=== PATIENT | male | born 1970 | race Two or more races ===

== ENCOUNTER 2024-10-10 08:50 | Emergency (ER) | payer BC, SELFPAY ==
[2024-10-10 09:02] VITALS: BP 100/80
[2024-10-10 09:34] VITALS: BMI 21.8
--- NOTE | 2024-10-10 10:27 | ED.GENMED ---
History of Present Illness
General
Chief Complaint: Medication Reaction
Source: patient
Exam Limitations: none
Time Seen by Provider: 10/10/24 10:27
Nursing documentation reviewed up to this point in time: agreed with
History of Present Illness
History of Present Illness:
54 yo male w h/o NIDDM, schizoaffective d/o presents for headaches and nausea past 3 days. He called his Psychiatrist who told him to come here for evaluation.
He weaned off Zoloft, finished 2 weeks ago. He started Vilazodone 20 mg, this is his 8th day on it. He wonders if his h/a and nausea are side effects. He has appointment with his psychiatrist tomorrow. He attends [facility] 5 days a week out pt
therapy.
Pt ran out of his Clozaril 300 mg 2 days ago (pharmacy told him they never received the order) so had none last p.m. or tonight. He is hoping the rx is filled by tomorrow. He ran out of Zofran
He states his is feeling better today but at advice of his psychiatrist came here for eval.
He states headache is 'a little bit' 01/10, denies nausea at this time.
Past History
Past History
ED Past Medical History: NIDDM and Psychiatric (schizoaffective disorder)
ED Past Surgical History: Orthopedic
Patient has exhibited threatening behavior?: No
Review of Systems
Review of Systems
Allergies reviewed?: Yes
All Other Systems: ROS reviewed and negative except as documented in HPI and ROS
Constitutional: Denies fever
Respiratory: Denies trouble breathing
Cardiac: Denies chest pain
ABD/GI: Reports nausea; Denies abdominal pain, vomiting or diarrhea
: Denies dysuria or difficulty voiding
Musculoskeletal: Reports no symptoms
Skin: Reports no symptoms
Neurological: Reports headache (mild); Denies dizzy, weakness or numbness
Phy Exam
Physical Exam
Physical Exam:
GENERAL: No acute distress. A&Ox3.
CONSTITUTIONAL: Afebrile.
EYES: clear, conjunctivae normal
Neck: Supple
ENMT: moist mucus membranes, Pharynx nl
RESPIRATORY: Regular respirations, nonlabored, lungs clear.
CARDIOVASCULAR: Regular rate and rhythm, no murmurs, no rubs.
GI: Soft, nontender, normal BS
MUSCULOSKELETAL: Moves with ease. Well perfused.
SKIN: Warm, dry, normal
PSYCH: Normal mood and affect. Well kept, interactive and appropriate
NEUROLOGIC: Awake, alert and oriented. No focal neurological deficits
Course
Orders/Labs/Results
Orders:
Orders
10/10/24 10:44
Complete Blood Count/With Diff Urgent
Comprehensive Metabolic Panel Urgent
Abnormal Lab Results
10/10/24
10:44
WBC 11.5 H 10^3/uL
(4.8-10.8)
MCV 79.8 L fL
(80.0-94.0)
Absolute Neuts (auto) 7.9 H 10^3/uL
(1.4-6.5)
Absolute Monos (auto) 1.2 H 10^3/uL
(0.1-0.6)
Lymphocytes % 19.1 L %
(20.5-51.1)
Monocytes % 10.1 H %
(1.7-9.3)
Glucose 257 H mg/dl
(70-99)
10/10/24 10:44
10/10/24 10:44
Vital Signs
Initial and Last Documented VS:
Initial Vital Signs
Temp Pulse Resp BP Pulse Ox
97.7 F 86 18 100/80 99
10/10/24 09:02 10/10/24 09:02 10/10/24 09:02 10/10/24 09:02 10/10/24 09:02
Last Documented Vital Signs
Temp Pulse Resp BP Pulse Ox
97.7 F 86 18 139/94 97
10/10/24 09:02 10/10/24 09:02 10/10/24 09:02 10/10/24 11:00 10/10/24 11:15
MDM/Problems Addressed
Differential Diagnosis Includes:
anxiety due to running out of Clozaril
Medication side effect
MDM/Problems Addressed:
54 yo male w h/o NIDDM, schizoaffective d/o presents for headaches and nausea past 3 days. He called his Psychiatrist who told him to come here for evaluation.
He weaned off Zoloft, finished 2 weeks ago. He started Vilazodone 20 mg, this is his 8th day on it. He wonders if his h/a and nausea are side effects. He has appointment with his psychiatrist tomorrow. He attends [facility] 5 days a week out pt
therapy.
Pt ran out of his Clozaril 300 mg 2 days ago (pharmacy told him they never received the order) so had none last p.m. or tonight. He is hoping the rx is filled by tomorrow. He ran out of Zofran
He states his is feeling better today but at advice of his psychiatrist came here for eval.
He states headache is 'a little bit' 2/10, denies nausea at this time.
Has been taking Ibuprofen/Tylenol with good relief of H/A
UpToDate info: <1% of Vilazodone users report H/A, 4-5% vomiting (pt has had no vomiting) 2% increased appetite
Due to potential interaction between Vilazodone and Zofran, will not renew Zofran.
Pt states he's feeling better anyway
11:25 a.m.
CBC normal'
CMP normal save for BS 257. Improved from 2 weeks ago ([facility] results on his phone reviewed). He stopped taking his Metformin, started it up again one week ago when his lab work showed high BS, followed by his Psychiatrist and team at [facility].
Stable for discharge.
*Critical Care Note
Total Time (30-74mins, 75-104mins- exclusive of procedures): Not Applicable
ED Attending Note
-
Portions of this chart may have been created with voice recognition software.� Occasional wrong word or��sound alike� substitutions may have occurred due to the inherent limitations of voice recognition software.
Discharge Plan
Departure
Patient Disposition: Home (Routine Discharge)
Date of Disposition: 10/10/24
Time of Disposition: :
Patient with high blood pressure during this ER visit?: No
Condition: Good
Discharge Problem:
Anxiety about health
Instructions: Anxiety, Adult ED
Prescriptions:
No Action
clozapine [Clozaril] 100 mg Tablet
300 mg PO HS
metformin 1,000 mg Tablet
1,000 mg PO BID
vilazodone 20 mg Tablet
20 mg PO DAILY
Referrals:
Melvin Daigle CRNP [Family Provider] -
Activity Restrictions/Additional Instructions:
Your lab results are normal. Your blood sugar is 257. Continue your Metformin.
I don't think your medications are causing your symptoms.
Since your are feeling better, most likely nothing worrisome.
Interventions
Interventions:
*Risk Screen - Suicide Last Done: 10/10/24 09:02
*General Assessment Last Done: 10/10/24 09:02
*Neglect/Abuse Screening Last Done: 10/10/24 09:02
*ED COVID-19 Vaccine History Last Done: 10/10/24 09:02
*Nursing Disposition Last Done: 10/10/24 11:38
ED-Skin Assessment Last Done: 10/10/24 11:26
ED- Pulmonary Assessment Last Done: 10/10/24 11:26
Discharge Date and Time
Discharge Date/Time: 10/10/24 11:38
Print Language: CANADIAN
[2024-10-10 10:38] VITALS: BP 131/87
[2024-10-10 10:52] LABS: % Basophils 0.5 % (0-2); % Eosinophils 0.9 % (0-6); % Immature Granulocytes 0.3 % (0-0.5); % Lymphocytes 19.1 % (20.5-51.1); % Monocytes 10.1 % (1.7-9.3); % Neutrophils 69.1 % (42.2-75.2); Absolute Basophils 0.1 10^3/uL (0-0.2); Absolute Eosinophils 0.1 10^3/uL (0-0.7); Absolute Lymphocytes 2.2 10^3/uL (1.2-3.4); Absolute Monocytes 1.2 10^3/uL (0.1-0.6); Absolute Neutrophils 7.9 10^3/uL (1.4-6.5); Hematocrit 40.7 % (39.0-52.0); Hemoglobin 14.9 g/dL (13.0-18.0); Mean Corp Hgb Conc. 36.6 g/dL (33.0-37.0); Mean Corpuscular Hgb 29.2 pg (27.0-31.0); Mean Corpuscular Volume 79.8 fL (80.0-94.0); Mean Platelet Volume 9.7 fL (7.4-10.4); Nucleated Red Blood Cells % 0 % (-); Platelet Count 287 10^3/uL (130-400); Red Cell Dist. Width 12.9 % (11.5-14.5); White Blood Cell Count 11.5 10^3/uL (4.8-10.8)
[2024-10-10 11:00] VITALS: BP 139/94
[2024-10-10 11:08] LABS: ALT (SGPT) 17 U/L (0-50); AST (SGOT) 19 U/L (17-59); Albumin 4.4 g/dl (3.5-5.0); Alkaline Phosphatase 104 U/L (38-126); Blood Urea Nitrogen 20 mg/dl (9-20); Carbon Dioxide 23 mmol/L (22-30); Chloride 99 mmol/L (98-107); Estimated Creatinine Clearance 92 ml/min; Glucose 257 mg/dl (70-99); Potassium 4.3 mmol/L (3.5-5.1); Sodium 135 mmol/L (135-145); Total Bilirubin 0.9 mg/dl (0.2-1.3); Total Protein 6.8 g/dl (6.3-8.2); eGFR > 60.00
== END 2024-10-10 11:38 | disposition home or self-care (01) ==
LOC: EMR 08:50
PROVIDERS: Registered Nurse; EMERGENCY PHYSICIAN Emergency Medicine; FAMILY PHYSICIAN Nurse Practitioner Family
DX: F41.9 Anxiety disorder, unspecified (principal); E11.9 Type 2 diabetes mellitus without complications; Z79.899 Other long term (current) drug therapy; Z79.84 Long term (current) use of oral hypoglycemic drugs
CPT/HCPCS: 99283; 80053; 85025

== ENCOUNTER → 2025-03-03 14:30 | Outpatient (REF) | payer BC, SELFPAY | LOC: HWRAD 14:30 | PROVIDERS: ATTENDING PHYSICIAN Internal Medicine | DX: F17.210 Nicotine dependence, cigarettes, uncomplicated (principal) | CPT/HCPCS: 71271 ==